=== PATIENT | female | born 1965 | race Caucasian/White ===

== ENCOUNTER 2017-08-19 03:23 | Emergency (ER) | payer BC, OTHER ==
[~2017-08-19] VITALS: Ht 165.1 cm; Wt 54.9 kg
[~2017-08-19 03:23] MED LIST: CEFD300C37 PO; DOXY100T PO; FAMO20TA7 PO; GUAI200T3 PO; NAPR220C2 PO; PRED20TA PO
[2017-08-19] MEDS ORDERED: KETOROLAC 30 MG/1 ML IVPush ONE (04:00)
[2017-08-19] MEDS ORDERED: PROMETHAZINE 25 MG/ML, 1ML IM ONE (04:00)
[2017-08-19] MEDS ORDERED: SODIUM CHLORIDE FLUSH 10ML SYR IVF ONE (04:00)
[2017-08-19] MEDS ORDERED: SODIUM CHLORIDE 0.9% 1,000ML IVBOLUS ONE (04:00)
[2017-08-19] MEDS ORDERED: KETOROLAC 30 MG/1 ML ONE (04:10)
[2017-08-19] MEDS ORDERED: PROMETHAZINE 25 MG/ML, 1ML ONE (04:10)
[2017-08-19 04:21] LABS: MEAN CORPUSCULAR HEMOGLOBIN 32.9 pg (27.0-34.8); MEAN CORPUSCULAR VOLUME 93.9 fL (80-100); MEAN PLATELET VOLUME 9.1 fL (7.4-10.4); PLATELET COUNT 409 x10^3/uL (130-400); RED CELL DISTRIBUTION WIDTH 12.6 % (9.6-15.2)
[2017-08-19 04:29] LABS: ANION GAP 13 mmol/L (5-15); CHLORIDE 110 mmol/L (98-107)
[2017-08-19 04:35] LABS: ALANINE AMINOTRANSFERASE 15 U/L (12-78); ALKALINE PHOSPHATASE 80 U/L (45-117); BILIRUBIN,TOTAL 0.3 mg/dL (0.2-1.0); CREATININE 0.82 mg/dL (0.55-1.02); TOTAL PROTEIN 7.6 g/dL (6.4-8.2); TROPONIN I < 0.015 ng/mL (0.000-0.045)
[2017-08-19 04:52] LABS: BASOPHILS # (AUTO) 0.06 x10^3/uL (0-0.1); BASOPHILS % (AUTO) 1 % (0-1); EOSINOPHILS # (AUTO) 0.13 x10^3/uL (0-0.4); EOSINOPHILS % (AUTO) 1 % (1-7); LYMPHOCYTES # (AUTO) 5.57 x10^3/uL (1-3.4); LYMPHOCYTES % (AUTO) 45 % (22-44); MD SCAN; MONOCYTES # (AUTO) 0.63 x10^3/uL (0.2-0.8); MONOCYTES % (AUTO) 5 % (2-9); NEUTROPHILS # (AUTO) 5.92 x10^3/uL (1.8-6.8); NEUTROPHILS % (AUTO) 48 % (42-75)
[2017-08-19 04:55] LABS: MICROSCOPIC NOT IND
[2017-08-19 05:10] LABS: CULTURE INDICATED? NO
[2017-08-19 05:46] VITALS: BP 120/85
== END 2017-08-19 05:50 | disposition home or self-care (01) ==
LOC: ED 05:40
DX: R10.84 Generalized abdominal pain (principal); R11.2 Nausea with vomiting, unspecified; E86.0 Dehydration; R55 Syncope and collapse; G43.909 Migraine, unspecified, not intractable, without status migrainosus; F17.200 Nicotine dependence, unspecified, uncomplicated
CPT/HCPCS: 36415; 71045; 80053; 81003; 83605; 84145; 84484; 85025; 87040; 93005; 96361; 96372; 96374; 99285; J1885; J2550; J7030